=== PATIENT | female | born 1995 | race Caucasian/White ===

== ENCOUNTER 2018-07-05 17:32 | Emergency (ER) | payer OTHER ==
[2018-07-05 17:42] VITALS: BP 105/66
[2018-07-05] MEDS ORDERED: cefTRIAXone(*) 1 GM in NS 0.9% 50 ML* 50 ML IVPB ONE (17:57)
--- NOTE | 2018-07-05 18:06 | UC ---
Back Pain HPI - HPI Summary HPI Summary: 23 yo F c/o bilateral back pain/ Patient was diagnosed w UTI 2 days ago and has taken 1 day (2 doses) of bactrim. developed the back pain today. she denies fever, N/V. Hx of multiple UTIs in past which she believes were treated with bactrim. patient's medications reviewed - History of Current Complaint Chief Complaint: [facility] Stated Complaint: BACK PAIN Time Seen by Provider: 07/05/18 17:36 Hx Last Menstrual Period: has iud Pain Intensity: 5 - Allergies/Home Medications Allergies/Adverse Reactions: Allergies Allergy/AdvReac Type Severity Reaction Status Date / Time No Known Allergies Allergy Verified 07/05/18 17:42 Home Medications: Home Medications Sulfamethox/Trimethoprim DS* [Bactrim DS 800/160 TAB*] 1 tab PO BID 07/05/18 [ History Confirmed 07/05/18] PMH/Surg Hx/FS Hx/Imm Hx Previously Healthy: Yes - Surgical History Surgical History: None - Family History Known Family History: Positive: Unknown - Social History Alcohol Use: Weekly Substance Use Type: None Smoking Status (MU): Never Smoked Tobacco Have You Smoked in the Last Year: No - Immunization History Hx Tetanus, Diphtheria Vaccination: Yes Vaccination Up to Date: Yes Review of Systems Genitourinary: Dysuria Is Patient Immunocompromised?: No All Other Systems Reviewed And Are Negative: Yes Physical Exam Triage Information Reviewed: Yes Appearance: Well-Appearing, No Pain Distress, Well-Nourished Vital Signs: Initial Vital Signs Temp 98.3 F 07/05/18 17:37 Pulse 79 07/05/18 17:37 Resp 18 07/05/18 17:37 BP 105/66 07/05/18 17:37 Pulse Ox 97 07/05/18 17:37 Vital Signs Reviewed: Yes Eyes: Positive: Conjunctiva Clear Neck exam: Normal Respiratory: Positive: No respiratory distress, No accessory muscle use Abdominal Exam: Normal Abdomen Description: Negative: CVA Tenderness (R), CVA Tenderness (L) Psychological Exam: Normal Skin Exam: Normal Back Pain Course/Dx - Course Course Of Treatment: given IV rocephin for presumed pyelonephritis - Differential Dx/Diagnosis Differential Diagnosis/HQI/PQRI: Other - UTI, pyelonephritis Provider Diagnoses: pyelonephritis Discharge - Sign-Out/Discharge Documenting (check all that apply): Patient Departure All imaging exams completed and their final reports reviewed: No Studies - Discharge Plan Condition: Stable Disposition: HOME Patient Education Materials: Kidney Infection (ED) Referrals: No Primary Care Phys,NOPCP [Primary Care Provider] - Additional Instructions: Your urine infection may have spread to your kidney, however the antibiotic that you are taking treats kidney infections (pyelonephritis) as well. If after taking 2 full days of the Bactrim (4 total doses), your symptoms continue to worsen, return to this urgent care or go to an ER. Your antibiotic would need to be changed - Billing Disposition and Condition Condition: STABLE Disposition: Home
[2018-07-05] MEDS ORDERED: cefTRIAXone VIAL(*) 1,000 MG VIAL ONE (18:09)
[2018-07-05] MEDS ORDERED: cefTRIAXone VIAL(*) 1,000 MG VIAL IVPB ONE (18:12)
== END 2018-07-05 18:50 | disposition home or self-care (01) ==
LOC: UCEAST 17:32
DX: N12 Tubulo-interstitial nephritis, not specified as acute or chronic (principal)
CPT/HCPCS: 81003; 84702; 87086; 96365; 99212; G0463; J0696